=== PATIENT | female | born 1975 | race Caucasian/White ===

== ENCOUNTER 2024-06-01 13:39 | Outpatient (AMB) | payer OTHER, SELFPAY ==
--- NOTE | 2024-06-01 13:49 | MHC.PC.OV ---
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 Intake Note: patient here for new patient visit Sleep Technologist Required: No Is last menstrual period known: No Post menopausal: No Patient : No Allergies Bees - has epipen Allergy (Unknown, Uncoded 09/11/20 10:41) Rash Codeine Phosphate Allergy (Unknown, Uncoded 09/11/20 10:41) Rash Hives Codeine Sulfate Allergy (Unknown, Uncoded 04/09/20 00:00) Hives Wellbutrin Allergy (Unknown, Uncoded 04/09/20 00:00) stomach upset Tobacco use date assessed: 06/01/24 Dental Screening Dental Screen Date: 06/01/24 Did you have a dental visit in the last 12 months?: No Did you have a dental problem in the last 6 months where you did not have access to dental care?: No Was dental information given to patient?: No HPI HPI Comments History of Present Illness Details This is a 48 year old female with a pmhx of tobacco use disorder, alcohol use disorder and GERD presenting a physical exam. She is a new patient to me. She's had reflux for 8-10 years. Tomato makes it worse. She's taken Famotidine 40 mg daily for 5-6 years. Says it is not helping. She vomits sometimes from it. She is a smoker and drinks coffee. Smokes 1 ppd x 37 years. She tried Chantix, but it caused tremors. She has an irritant reaction to patches. She is allergic to Wellbutrin. Drinks 8-9 beers every 2 days. She used to see a therapist. She is open to behavioral health. She gets agitated and shaky if she does not drink. She has underlying depression symptoms x 6 months. She has some anxiety. She is referred for a colonoscopy. She is referred for a mammogram and RN LAB exam. Declines screenings for STIs. Not SA. ROS: Constitutional: No unexplained weight loss, fever, chills, fatigue or night sweats. Eyes: No vision changes, blurry vision, double vision, eye pain, eye redness, eye discharge. ENT: No hearing loss, sneezing, congestion, runny nose or sore throat. Respiratory: No shortness of breath, cough or sputum production. Cardiovascular: No chest pain, chest pressure or chest discomfort. No palpitations or pedal edema. Gastrointestinal: No anorexia, nausea or diarrhea. No abdominal pain or blood in stool. Genitourinary: No dysuria, hematuria, urinary frequency. Neurologic: No headache, dizziness, syncope, unilateral weakness, ataxia, numbness or tingling in the extremities. Musculoskeletal: No muscle pain, back pain, joint pain or swelling. Hematologic/Lymphatics: No bleeding or bruising. No painful lymph nodes. Skin: No rash or itching. Endocrine: No cold or heat intolerance. No polyuria or polydipsia. Psychiatric: No SI/HI. Physical exam: Constitutional: Alert, in no distress. Head: Normocephalic. Eyes: Pupils are equal, round and reactive to light. Extraocular muscles intact. Ear, Nose and Throat: Canals clear. TMs normal. Normal nasal mucosa. No nasal discharge. No oral lesions. Neck: Supple, Full range of motion. No lymphadenopathy. No palpable thyroid masses. Respiratory: Clear to auscultation. Cardiovascular: S1 S2 regular. No murmurs. N Gastrointestinal: Abdomen soft, non-tender, non-distended. Normal bowel sounds. No palpable masses. Neurologic: No focal neurological deficits. Symmetric patellar reflexes. Moves all extremities spontaneously. Sensation intact bilaterally. Skin: No rashes or lesions. Musculoskeletal: No gross deformities. Normal range of motion. Extremities: Warm and well perfused. Psychiatric: Normal mood and affect [facility] Medical History (Updated 06/01/24 @ 14:44 by YARI Mei) Tobacco use Screening for cardiovascular condition Depression Alcohol use disorder Routine physical examination Acid reflux COPD (chronic obstructive pulmonary disease) Surgical History (Updated 06/01/24 @ 13:55 by Brittany Flannery) H/O wrist surgery History of ankle surgery H/O knee surgery Family History (Updated 06/01/24 @ 14:01 by Brittany Flannery) Mother Asthma High blood pressure Father Asthma High cholesterol Alcohol abuse Substance abuse FH: mental illness Maternal Grandfather Asthma High blood pressure High cholesterol Diabetes Paternal Grandfather High blood pressure High cholesterol Diabetes Paternal Uncle FH: mental illness Social History Housing: Apartment Patient Tobacco Use Status: Current everyday Tobacco user Tobacco use type: Cigarette Cigarettes Per Day: 15 Years Smoked: 36 e-Cigarette/Vaping Use: Never Used service: No Current occupational status: unemployed Cognitive needs: No Hearing needs: No Vision needs: Yes (wear glasses) Questionnaire PHQ-9 Over the last 2 weeks, how often have you been bothered by any of the following problems? 1. Little interest or pleasure in doing things: more than half the days 2. Feeling down, depressed, or hopeless: more than half the days 3. Trouble falling or staying asleep, or sleeping too much: nearly every day 4. Feeling tired or having little energy: more than half the days 5. Poor appetite or overeating: not at all 6. Feeling bad about yourself - or that you are a failure or have let yourself or your family down: several days 7. Trouble concentrating on things, such as reading the newspaper or watching television: not at all 8. Moving or speaking so slowly that other people could have noticed. Or the opposite - being so fidgety or restless that you have been moving around a lot more than usual: not at all 9. Thoughts that you would be better off or of hurting yourself in some way: not at all Total score: 10 Depression Screening Interpretation: Positive Depression Screening Follow-up: Community Mental Health Worker F/U Depression Screening Done: Yes 05137 - PHQ-9 Billing: Yes Source: Developed by Drs. Yordan Ruiz, Malinda Ross, Osman Haywood and colleagues, with an educational adilia from [email or web address]. Thrive Questionnaire Date Thrive assessed: 06/01/24 I am a: Patient Within the past 12 months, did the food you bought not last and you didn't have the money to get more?: Sometimes True Within the past 12 months, did you worry whether your food would run out before you got money to buy more?: Never true Do you have trouble paying for medicines?: No Do you have trouble getting transportation to medical appointments?: Yes Do you have trouble paying your heating and electricity bill?: No Do you have trouble taking care of your child, family member or friend?: Yes Do you have trouble with day-to-day activities such as bathing, preparing meals, shopping, managing finances, etc.?: No Are you currently unemployed and looking for a job?: Yes Are you interested in more education?: No Please select the resources that you would like help with: None Currently or been in a relationship where the following occur: No concerns reported THRIVE Score: 2 VISHAL-7 AMB Questionnaire VISHAL-7 Date VISHAL - 7 assessed: 06/01/24 Feeling nervous, anxious, or on edge: 1 = Several days Not being able to stop or control worryin = Several days Worrying too much about different things: 1 = Several days Trouble relaxin = Several days Being so restless that it is hard to sit still: 0 = Not at all Becoming easily annoyed or irritable: 3 = Nearly every day Feeling afraid as if something awful might happen: 0 = Not at all Total VISHAL-7 score (0-4 normal; 5-9 mild; 10-14 moderate; 15-21 severe): 7 Source: Developed by Drs. Yordan Ruiz, Malinda Ross, Osman Haywood and colleagues, with an educational adilia from [email or web address]. VISHAL-7 Assessment Billing VISHAL-7 Assessment Tool: VISHAL-7 Assessment 45437 ACT Questionnaire In the past 4 weeks, how much of the time did your asthma keep you from getting as much done at work, school or at home?: Some of the time During the past 4 weeks, how often have you had shortness of breath?: 1-2 times a week During the past 4 weeks, how often did your asthma symptoms wake you up at night or earlier than usual in the morning?: Not at all During the past 4 weeks, how often have you had to use your rescue inhaler or nebulizer medication?: Once a week or less How would you rate your asthma control during the past 4 weeks?: Completely controlled Score: 21 Physical exam (Primary Care) Vital Signs: Last Vital Signs Temp 97.6 F 06/01/24 13:57 Pulse 82 06/01/24 13:57 Resp 15 06/01/24 13:57 BP 132/74 06/01/24 13:57 Pulse Ox 99 06/01/24 13:57 Oxygen Delivery Method Room Air 06/01/24 13:57 BMI result Body Mass Index 24.4 Tobacco/Smoking Status: Tobacco use Status Tobacco use date assessed 06/01/24 06/01/24 14:00 Patient Tobacco Use Status Current everyday Tobacco 06/01/24 14:00 Tobacco use type Cigarette 06/01/24 14:00 e-Cigarette/Vaping Use Never Used 06/01/24 14:00 PHQ-9: PHQ-9 Score PHQ-9: Total score 10 06/01/24 14:31 Depression Screening Interpretation: Positive Depression Screening Follow-up: Community Mental Health Worker F/U Thrive Assessment: Date of Thrive Assessment Date Thrive assessed 06/01/24 06/01/24 13:53 Currently or been in a relationship where the following occur: No concerns reported Assessment and Plan Assessment & Plan (1) Routine physical examination: Code(s): Z00.00 - Encounter for general adult medical examination without abnormal findings Plan: Patient is seen today for a routine physical. As part of this visit we reviewed the following issues, which are considered and essential part of preventative health in this age group: - Breast Cancer screening - Annual Superintendent Pressure exam - Screening for colon cancer - Blood pressure screening - Cholesterol screening - Osteoporosis prevention including calcium/vitamin D intake, weight bearing exercise & smoking cessation - Nutritional and exercise counseling - Counseling of injury prevention including fire prevention, smoke alarms and seat belt usage - Screening for depression - Prevention of and/or testing for infectious diseases - Education about skin cancer - Recommendations about immunizations - Recommendation of an eye exam - Screening for substance abuse (2) Depression: Code(s): F32.A - Depression, unspecified Qualifiers: Depression Type: major depressive disorder Major depression recurrence: single episode Active/Remission status: currently active Major depression episode severity: moderate Qualified Code(s): F32.1 - Major depressive disorder, single episode, moderate Plan: Compounded by alcohol use disorder. Refer to behavioral health. (3) Tobacco use: Code(s): Z72.0 - Tobacco use Plan: Patient not able to tolerate multiple methods for smoking cessation. She may plan to cut down gradually, but she is not prepared to do it yet. Referred to [facility] at [facility] for 37 pack-year history. (4) Alcohol use disorder: Code(s): F10.90 - Alcohol use, unspecified, uncomplicated Plan: We reviewed the risks of alcohol use disorder. Check labs. Referred to behavioral health. Patient aware she should not try to stop drinking on her own due to possibility of withdrawal which can result in . (5) Chronic GERD: Code(s): K21.9 - Gastro-esophageal reflux disease without esophagitis Plan: Discussed smoking and coffee intake and alcohol are contributing to this. See above. Switch famotidine to Nexium. Refer to Gastroenterology. Plan Follow up in 3 months. Orders: Orders Comprehensive Met. Panel Today F10.90 - Alcohol use, unspecified, uncomplicated, F32.A - Depression, unspecified, K21.9 - Gastro-esophageal reflux disease without esophagitis, Z13.6 - Encounter for screening for cardiovascular disorders Lipid Panel Today F10.90 - Alcohol use, unspecified, uncomplicated, F32.A - Depression, unspecified, K21.9 - Gastro-esophageal reflux disease without esophagitis, Z13.6 - Encounter for screening for cardiovascular disorders TSH reflex Free T4 Today E66.9 - Obesity, unspecified, F10.90 - Alcohol use, unspecified, uncomplicated, F32.A - Depression, unspecified, K21.9 - Gastro-esophageal reflux disease without esophagitis, Z13.6 - Encounter for screening for cardiovascular disorders MM screening mammo BI Today Z12.31 - Encounter for screening mammogram for malignant neoplasm of breast Complete Blood Count no Diff Today F10.90 - Alcohol use, unspecified, uncomplicated, F32.A - Depression, unspecified, K21.9 - Gastro-esophageal reflux disease without esophagitis, Z13.6 - Encounter for screening for cardiovascular disorders Vitamin B12 and Folate Today F10.90 - Alcohol use, unspecified, uncomplicated, F32.A - Depression, unspecified, K21.9 - Gastro-esophageal reflux disease without esophagitis, Z13.6 - Encounter for screening for cardiovascular disorders Referrals Psychology Referral F10.90 - Alcohol use, unspecified, uncomplicated, F32.A - Depression, unspecified [employer] Referral Z01.419 - Encounter for gynecological examination (general) (routine) without abnormal findings Thoracic/General Surgery Referral Z72.0 - Tobacco use Gastroenterology Referral K21.9 - Gastro-esophageal reflux disease without esophagitis, Z12.11 - Encounter for screening for malignant neoplasm of colon Medications: New epinephrine (EpiPen) 0.3 mg (0.3 mL) IM Q4H PRN 2 ea 0RF anaphylaxis esomeprazole magnesium (Nexium) 20 mg PO DAILY 90 days 90 caps 0RF Discontinued famotidine Discontinued Reason: Doctor's Order 40 mg PO DAILY 90 tabs 0RF Coding Level of Care Code Est Pt Prev Care 40-64y(21238) Diagnoses Routine physical examination Z00.00 Current moderate episode of major depressive disorder without prior episode F32.1 Depression Type: major depressive disorder Major depression recurrence: single episode Active/Remission status: currently active Major depression episode severity: moderate Tobacco use Z72.0 Alcohol use disorder F10.90 Chronic GERD K21.9 Additional Codes VISHAL-7 Assessment Billing - VISHAL-7 Assessment Tool: VISHAL-7 Assessment 35104 ([id number])
[2024-06-01 13:57] VITALS: BP 132/74; PULSE 82; RESP 15; TEMP 36.4; O2SAT 99; BMI 24.4
== END 2024-06-01 14:40 | disposition home or self-care (01) ==
PROVIDERS: PCP Physician Assistant Medical; Visit Provider Physician Assistant Medical
DX: Z00.00 Encounter for general adult medical examination without abnormal findings (principal); F32.1 Major depressive disorder, single episode, moderate; Z72.0 Tobacco use; F10.90 Alcohol use, unspecified, uncomplicated; K21.9 Gastro-esophageal reflux disease without esophagitis
CPT/HCPCS: 99396

== ENCOUNTER 2024-06-16 10:32 | Outpatient (REF) | payer OTHER, SELFPAY ==
--- NOTE | ~2024-06-16 | MM_ITS ---
EXAMINATION: MM SCREENING DIGITAL BREAST TOMOSYNTHESIS, BILATERAL CLINICAL INFORMATION: Screening. Asymptomatic. COMPARISON: Mammography: Baseline. TECHNIQUE: Digital breast mammography with tomosynthesis is performed in both the craniocaudal and mediolateral oblique views along with computer-aided detection (CAD). FINDINGS: The breasts are heterogeneously dense, which may obscure small masses (ACR BI-RADS breast composition Category c). There are no significant masses, abnormal calcifications, or other abnormalities. MM/MM tomosynthesis screening BI IMPRESSION: No mammographic evidence of malignancy. ASSESSMENT: BI-RADS BI-RADS 1 - Negative RECOMMENDATION: Routine annual mammography screening. 1 year F/U This examination should not preclude the clinical evaluation of a suspicious palpable abnormality. This patient's information was entered into a reminder system with a target due date for their next mammogram. Electronically signed by: Gricelda Donovan DO 06/29/2024 08:07 PM EDT
== END 2024-06-16 10:33 | disposition home or self-care (01) ==
LOC: HO.MAMMO 10:32
PROVIDERS: PCP Physician Assistant Medical; Visit Provider Physician Assistant Medical
DX: Z12.31 Encounter for screening mammogram for malignant neoplasm of breast (principal)
CPT/HCPCS: 77063; 77067

== ENCOUNTER → 2024-06-16 10:35 | Outpatient (BNV) | payer OTHER, SELFPAY | PROVIDERS: PCP Physician Assistant Medical; Visit Provider Internal Medicine | DX: Z12.31 Encounter for screening mammogram for malignant neoplasm of breast (principal) | CPT/HCPCS: 77063; 77067 ==

== ENCOUNTER 2024-10-16 08:52 | Outpatient (AMB) | payer OTHER, SELFPAY ==
--- NOTE | 2024-10-16 09:05 | A.OFFPC_ITS ---
Vital Signs 10/16/24 09:07 Height 5 ft 4.5 in Weight 143 lb 2 oz BMI 24.2 BP 95/62 Blood Pressure Location Rt brachial Position Sitting Pulse 94 Pulse Source Pulse Oximeter Pulse Oximetry (%) 96 Oxygen Delivery Method Room Air Intake Visit Reasons: med f/u Intake Note: Medication follow up. Needs refill on epipen. Inhaler is not working sufficiently. Wire Lather Required: No Allergies Bees - has epipen Allergy (Unknown, Uncoded 10/16/24 09:05) Rash Codeine Phosphate Allergy (Unknown, Uncoded 10/16/24 09:05) Rash Hives Codeine Sulfate Allergy (Unknown, Uncoded 10/16/24 09:05) Hives Wellbutrin Allergy (Unknown, Uncoded 10/16/24 09:05) stomach upset Tobacco use date assessed: 06/01/24 Dental Screening Dental Screen Date: 06/01/24 HPI HPI Comments History of Present Illness Details This is a 48 year old female with a pmhx of tobacco use disorder, alcohol use disorder and GERD presenting for follow up. Accompanied by her aunt. As you recall we discussed reflux at her last visit: She's had reflux for 8-10 years. Tomato makes it worse. She's taken Famotidine 40 mg daily for 5-6 years. Says it is not helping. She vomits sometimes from it. She is a smoker and drinks coffee. Smokes 1 ppd x 37 years. Treated with Nexium. She is due for screening colonoscopy. I referred her to [facility] per her request. She said she was contacted, but she did not want to schedule a consult and just wanted to get the endoscopy and colonoscopy scheduled. I explained to her that since she has symptoms she needs to be seen by a provider for evaluation. She would like us to recent the referral to [facility] gastro. She tried Chantix, but it caused tremors. She has an irritant reaction to patches. She is allergic to Wellbutrin. Shares refer to [facility] for LDCT, but they told her she was too young. She is turning 49 in 2 months. She asks for a new referral. She is drinking 5 or 6 beers per day now down from 8 or 9 previously. She used to see a therapist and a psychiatrist at [facility] in [place]. The last psychiatrist she saw was Dr. Jack. They are closed now. She gets agitated and shaky if she does not drink. She has underlying depression and anxiety. Denies SI/HI. I referred her to Psychology and Psychiatry. Patient says clonazepam was prescribed for sleep. Patient says right now she does not want to speak with a therapist, but she does want to psychiatrist. In the EMR it is documented they left her 3 messages for Psychiatry, but she did not call back. Mammogram completed 06/16/2024. Routine mammo in 1 year recommended. She requests referral to Podiatry. In 2014 she had left foot trauma and surgery due to an accident. She has screws in her left foot. She complains of bilateral here pain that gets worse throughout the day after walking and moving around. No swelling, numbness or tingling. No new trauma. Patient says she also injured the right foot in the accident. She did not have labs done yet that I ordered. ROS: Constitutional: No unexplained weight loss, fever, chills or night sweats. Respiratory: No shortness of breath, cough or sputum production. No hemoptysis. Cardiovascular: No chest pain Neurologic: No headache, dizziness, syncope, unilateral weakness, ataxia, numbness or tingling in the extremities. Musculoskeletal: see HPI Hematologic/Lymphatics: No bleeding or bruising. Skin: No rash Endocrine: No cold or heat intolerance. No polyuria or polydipsia. Psychiatric: No SI/HI. Physical exam: Constitutional: Alert, in no distress. Neck: Supple, Full range of motion. No lymphadenopathy. No palpable thyroid masses. Respiratory: Clear to auscultation. Cardiovascular: S1 S2 regular. No murmurs. Right foot: Warm and well perfused. No clubbing, cyanosis or edema. DP pulse 3+. Sensation intact. Plantar surface of the right heel tender but less so than the left. Left foot: Warm and well perfused. No clubbing, cyanosis or edema. DP pulse 3+. Sensation intact. Postsurgical scars present. Plantar surface of the left heel tender. Psychiatric: Cooperative. [facility] Medical History (Updated 10/17/24 @ 11:32 by YARI Mei) Screen for colon cancer Heel pain, bilateral Tobacco use Screening for cardiovascular condition Depression Alcohol use disorder Routine physical examination Acid reflux COPD (chronic obstructive pulmonary disease) Surgical History (Updated 06/01/24 @ 13:55 by Brittany Flannery MA) H/O wrist surgery History of ankle surgery H/O knee surgery Family History (Updated 06/01/24 @ 14:01 by Brittany Flannery MA) Mother Asthma High blood pressure Father Asthma High cholesterol Alcohol abuse Substance abuse FH: mental illness Maternal Grandfather Asthma High blood pressure High cholesterol Diabetes Paternal Grandfather High blood pressure High cholesterol Diabetes Paternal Uncle FH: mental illness Social History Housing: Apartment Patient Tobacco Use Status: Current everyday Tobacco user Tobacco use type: Cigarette Cigarettes Per Day: 15 Years Smoked: 36 e-Cigarette/Vaping Use: Never Used service: No Current occupational status: unemployed Cognitive needs: No Hearing needs: No Vision needs: Yes (wear glasses) Questionnaire PHQ-9 Over the last 2 weeks, how often have you been bothered by any of the following problems? 1. Little interest or pleasure in doing things: more than half the days 2. Feeling down, depressed, or hopeless: nearly every day 3. Trouble falling or staying asleep, or sleeping too much: nearly every day 4. Feeling tired or having little energy: nearly every day 5. Poor appetite or overeating: not at all 6. Feeling bad about yourself - or that you are a failure or have let yourself or your family down: more than half the days 7. Trouble concentrating on things, such as reading the newspaper or watching television: more than half the days 8. Moving or speaking so slowly that other people could have noticed. Or the opposite - being so fidgety or restless that you have been moving around a lot more than usual: not at all 9. Thoughts that you would be better off or of hurting yourself in some way: not at all Total score: 15 Depression Screening Interpretation: Positive Depression Screening Follow-up: Existing condition and Follow-up Visit Requested Depression Screening Done: Yes Source: Developed by Drs. Yordan Ruiz, Malinda Ross, Osman Haywood and colleagues, with an educational adilia from [employer]. Thrive Questionnaire Date Thrive assessed: 06/01/24 I am a: Patient What is your living situation today?: I have a steady place to live Within the past 12 months, did the food you bought not last and you didn't have the money to get more?: Never true Within the past 12 months, did you worry whether your food would run out before you got money to buy more?: Never true Do you have trouble paying for medicines?: No Do you have trouble getting transportation to medical appointments?: Yes Do you have trouble paying your heating and electricity bill?: Yes Do you have trouble taking care of your child, family member or friend?: I choose not to answer this question Do you have trouble with day-to-day activities such as bathing, preparing meals, shopping, managing finances, etc.?: No Are you currently unemployed and looking for a job?: No Are you interested in more education?: No Please select the resources that you would like help with: Transportation Currently or been in a relationship where the following occur: I choose not to answer THRIVE Score: 2 AUDIT C Alcohol Use Questionnaire (AUDIT-C) 1. How often do you have a drink containing alcohol?: 4 or more times a week 2. How many drinks containing alcohol do you have on a typical day when you are drinking?: 5 or 6 3. How often do you have six or more drinks on one occasion?: Weekly Total Score: 9 VISHAL-7 AMB Questionnaire VISHAL-7 Date VISHAL - 7 assessed: 06/01/24 Feeling nervous, anxious, or on edge: 1 = Several days Not being able to stop or control worryin = Several days Worrying too much about different things: 1 = Several days Trouble relaxin = Several days Being so restless that it is hard to sit still: 1 = Several days Becoming easily annoyed or irritable: 1 = Several days Feeling afraid as if something awful might happen: 0 = Not at all Total VISHAL-7 score (0-4 normal; 5-9 mild; 10-14 moderate; 15-21 severe): 6 Source: Developed by Drs. Yordan Ruiz, Malinda Ross, Osman Haywood and colleagues, with an educational adilia from [employer]. Physical exam (Primary Care) Vital Signs: Last Vital Signs Pulse 94 10/16/24 09:07 BP 95/62 10/16/24 09:07 Pulse Ox 96 10/16/24 09:07 Oxygen Delivery Method Room Air 10/16/24 09:07 BMI result Body Mass Index 24.2 Tobacco/Smoking Status: Tobacco use Status Tobacco use date assessed 06/01/24 10/16/24 09:10 Patient Tobacco Use Status Current everyday Tobacco 10/16/24 09:10 Tobacco use type Cigarette 10/16/24 09:10 e-Cigarette/Vaping Use Never Used 10/16/24 09:10 PHQ-9: PHQ-9 Score PHQ-9: Total score 15 10/16/24 09:10 Depression Screening Interpretation: Positive Depression Screening Follow-up: Existing condition and Follow-up Visit Requested Thrive Assessment: Date of Thrive Assessment Date Thrive assessed 06/01/24 10/16/24 09:10 Currently or been in a relationship where the following occur: I choose not to answer Coding Level of Care Code Est Pt Level 4 (92205) Complex EM visit Add On G2211 Diagnoses Chronic GERD K21.9 Tobacco use Z72.0 Alcohol use disorder F10.90 Current moderate episode of major depressive disorder without prior episode F32.1 Depression Type: major depressive disorder Major depression recurrence: single episode Active/Remission status: currently active Major depression episode severity: moderate Heel pain, bilateral M79.671; M79.672 Assessment & Plan Assessment & Plan (1) Chronic GERD: Code(s): K21.9 - Gastro-esophageal reflux disease without esophagitis Category: Medical Plan: We again discussed alcohol consumption and smoking and how this relates to GERD. Recommended avoidance of spicy and acidic foods. Continue Nexium. Referred anew to [facility] for GERD and screening colonoscopy. (2) Tobacco use: Code(s): Z72.0 - Tobacco use Category: Social Hx Plan: Patient is not interested in cessation at this time. She is interested in LDCT. Referred anew since she will be 49 in 2 months and qualify. (3) Alcohol use disorder: Code(s): F10.90 - Alcohol use, unspecified, uncomplicated Category: Medical Plan: We reviewed the risks of alcohol abuse in detail. She is not ready to stop drinking and declines referral to addiction Medicine. We discussed Psychology, and she is willing to try some counseling again. New referral placed. She is also referred to Psychiatry. She will have her lab work done. (4) Depression: Code(s): F32.A - Depression, unspecified Category: Medical Qualifiers: Depression Type: major depressive disorder Major depression recurrence: single episode Active/Remission status: currently active Major depression episode severity: moderate Qualified Code(s): F32.1 - Major depressive disorder, single episode, moderate Plan: See above. (5) Heel pain, bilateral: Code(s): M79.671 - Pain in right foot; M79.672 - Pain in left foot Category: Medical Plan: Ordered x-rays and refer to podiatry. Plan Follow up in 3 months. Orders: Orders XR calcaneus LT min 2V 10/16/24 M79.671 - Pain in right foot, M79.672 - Pain in left foot XR calcaneus RT min 2V 10/16/24 M79.671 - Pain in right foot, M79.672 - Pain in left foot Referrals Thoracic/General Surgery Referral Z72.0 - Tobacco use Podiatry Referral F10.90 - Alcohol use, unspecified, uncomplicated, F32.1 - Major depressive disorder, single episode, moderate, M79.671 - Pain in right foot, M79.672 - Pain in left foot Gastroenterology Referral K21.9 - Gastro-esophageal reflux disease without esophagitis, Z12.11 - Encounter for screening for malignant neoplasm of colon Psychology Referral F10.90 - Alcohol use, unspecified, uncomplicated, F32.1 - Major depressive disorder, single episode, moderate Psychiatry Outpatient Consultation Service F10.90 - Alcohol use, unspecified, uncomplicated, F32.1 - Major depressive disorder, single episode, moderate
[2024-10-16 09:07] VITALS: BP 95/62; PULSE 94; O2SAT 96; BMI 24.2
== END 2024-10-16 09:36 | disposition home or self-care (01) ==
PROVIDERS: PCP Physician Assistant Medical; Visit Provider Physician Assistant Medical
DX: K21.9 Gastro-esophageal reflux disease without esophagitis (principal); Z72.0 Tobacco use; F10.90 Alcohol use, unspecified, uncomplicated; F32.1 Major depressive disorder, single episode, moderate; M79.671 Pain in right foot; M79.672 Pain in left foot

== ENCOUNTER 2024-10-16 09:49 | Outpatient (REF) | payer OTHER, SELFPAY ==
[2024-10-16 11:20] LABS: Hematocrit 45.9 % (37.0-47.0); Hemoglobin 15.5 g/dl (12.0-16.0); Mean Corpuscular HGB Conc 33.8 g/dl (31.0-35.0); Mean Corpuscular Hemoglobin 31.6 pg (27.0-33.0); Mean Corpuscular Volume 93.7 fL (80.0-98.0); Mean Platelet Volume 9.7 fL (9.4-12.3); Platelet Count 343 X10*3/uL (160-400); Red Cell Distribution Width 13.2 % (11.0-16.0); White Blood Count 7.1 X10*3/uL (4.8-10.8)
[2024-10-16 12:20] LABS: Alanine Aminotransferase 127 U/L (0-31); Albumin Level 4.8 g/dL (3.5-5.0); Alkaline Phosphatase 54 U/L (39-117); Anion Gap 12 (12-20); Aspartate Amino Transferase 102 U/L (5-31); Bilirubin Total 0.5 mg/dL (0.0-1.0); Blood Urea Nitrogen 8 mg/dL (9-16); Calcium 9.8 mg/dL (8.4-10.2); Carbon Dioxide 28 mmol/L (22-29); Chloride 101 mmol/L (96-108); Cholesterol 199 mg/dL (<200); Estimated Glomerular Filt Rate > 60; Glucose Random 72 mg/dL (60-115); HDL Cholesterol 103 mg/dL (>40); LDL Cholesterol Calculated 83 mg/dL (<100); Potassium 4.3 mmol/L (3.3-5.1); Sodium 137 mmol/L (135-145); TSH reflex Free T4 1.39 uIU/mL (0.32-4.0); Total Protein 7.8 g/dL (6.5-8.0); Triglycerides 68 mg/dL (<150)
[2024-10-16 12:29] LABS: Folate 10.3 ng/mL (> or = 4.0); Vitamin B12 413 pg/mL (200-900)
== END 2024-10-16 09:50 | disposition home or self-care (01) ==
LOC: HO.WFDLDS 09:49
PROVIDERS: Visit Provider Physician Assistant Medical
DX: K21.9 Gastro-esophageal reflux disease without esophagitis (principal); F10.90 Alcohol use, unspecified, uncomplicated; F32.1 Major depressive disorder, single episode, moderate; M79.671 Pain in right foot; M79.672 Pain in left foot; Z72.0 Tobacco use; Z13.6 Encounter for screening for cardiovascular disorders; E66.9 Obesity, unspecified
CPT/HCPCS: 36415; 80053; 80061; 82607; 82746; 84443; 85027; 99212

== ENCOUNTER 2024-11-08 10:16 | Outpatient (REF) | payer OTHER, SELFPAY ==
--- NOTE | ~2024-11-08 | XR_ITS ---
EXAMINATION: XR CALCANEUS, RIGHT CLINICAL INFORMATION: M79.671 - Pain in right foot COMPARISON: None available. TECHNIQUE: Lateral and axial views of the right calcaneus were obtained. FINDINGS: There is a small, 5 mm spur on the plantar calcaneus.. No acute cortical disruption. No lytic or blastic lesions. XR/XR calcaneus RT min 2V IMPRESSION: Small, 5 mm, plantar calcaneal spur. Electronically signed by: Dileep Mccord MD 11/08/2024 11:58 AM [facility]
--- NOTE | ~2024-11-08 | XR_ITS ---
EXAMINATION: XR CALCANEUS, LEFT CLINICAL INFORMATION: M79.671 - Pain in right foot COMPARISON: Left ankle x-ray dated June 02, 2016. TECHNIQUE: Lateral and axial views of the left calcaneus were obtained. FINDINGS: The calcaneus is intact. No lytic or blastic lesions. There is a metallic screw overlapping the distal diaphysis of the fibula. The previously identified metallic plates and multiple screws in the ankle are not identified. XR/XR calcaneus LT min 2V IMPRESSION: Normal left calcaneus. Electronically signed by: Dileep Mccord MD 11/08/2024 11:57 AM [facility]
--- NOTE | ~2024-11-08 | US_ITS ---
EXAMINATION: US ABDOMEN LIMITED WITH LIVER ELASTOGRAPHY CLINICAL INFORMATION: Elevated LFTs. COMPARISON: None available. TECHNIQUE: Real-time imaging of the abdominal viscera. Noninvasive ultrasound liver fibrosis assessment is performed using [place] Elast[employer] point quantification shear wave elastography (2D-SWE) with a C5-2 MHz transducer. Multiple elastography samples are obtained. FINDINGS: PANCREAS: The visualized pancreatic head and body are normal in appearance. The remainder of the pancreas is obscured from visualization by the overlying bowel gas. LIVER: The liver demonstrates normal size and contour. There is diffusely increased parenchymal echogenicity. No focal lesion or intrahepatic biliary duct dilatation. The right lobe measures 15.2 cm in length. The left lobe measures 13.5 cm in length. Portal flow is towards the liver (hepatopetal). Shear wave liver elastography median stiffness is 1.42 m/s (reference: normal median stiffness is 1.3 m/s or less). IQR/median stiffness to assess sampling precision is 0.07 (reference: good quality data set is IQR/median stiffness of 0.15 or less). GALLBLADDER: The gallbladder is physiologically distended without evidence of stones, sludge, polyps, wall thickening or pericholecystic fluid. COMMON BILE DUCT: Normal in caliber measuring 0.6 cm in diameter. RIGHT KIDNEY: No hydronephrosis. No renal calculi or focal parenchymal lesions. The kidney measures 10.1 cm in maximum dimension. FREE FLUID: None. US/US abdomen blandon w elastography IMPRESSION: 1. Mildly diffusely increased hepatic echogenicity most likely on the basis of steatosis. No focal lesion. 2. Liver elastography: In the absence of other known clinical signs, measurements rule out compensated advanced chronic liver disease. If there are known clinical signs, further testing may be needed for confirmation. 3. Remainder of the examination is normal. REFERENCE: Society of Radiologists in Ultrasound Liver Stiffness Thresholds (2020): LIVER STIFFNESS THRESHOLDS: *Liver Stiffness equal or less than 1.3 m/s: High probability of being normal. *Liver Stiffness less than 1.7 m/s: In the absence of other known clinical signs, rules out compensated advanced chronic liver disease. *Liver Stiffness 1.7-2.1 m/s: Suggestive of compensated advanced chronic liver disease but need further test for confirmation. *Liver Stiffness over 2.1 m/s: Rules in compensated advanced chronic liver disease. *Liver Stiffness over 2.4 m/s: Suggestive of clinically significant portal hypertension. QUALITY OF DATA SET: *IQR/Median value equal or less than 0.15 implies a quality data set. *IQR/Median value over 0.15 implies a poor quality data set. SIGNIFICANT CHANGE FROM PRIOR EXAM: Significant change if liver stiffness measurement is 10% or greater from prior exam. OTHER CONSIDERATIONS: The stage of liver fibrosis may be overestimated in the setting of acute hepatitis, liver inflammation, elevated liver function tests, hepatic vascular congestion, obstructive cholestasis, non-fasting state, and infiltrative diseases such as amyloidosis and lymphoma. In some patients with NAFLD, the liver stiffness thresholds for compensated advanced chronic liver disease may be lower. In causes other than viral hepatitis and NAFLD, liver stiffness thresholds are not well established. Electronically signed by: Stef Ribeiro MD 11/08/2024 12:34 PM [facility]
== END 2024-11-08 10:17 | disposition home or self-care (01) ==
LOC: HO.US 10:16
PROVIDERS: PCP Physician Assistant Medical; Visit Provider Physician Assistant Medical
DX: R74.8 Abnormal levels of other serum enzymes (principal); F10.90 Alcohol use, unspecified, uncomplicated; M79.671 Pain in right foot; M79.672 Pain in left foot
CPT/HCPCS: 73650; 76705; 76981

== ENCOUNTER → 2024-11-08 10:21 | Outpatient (BNV) | payer OTHER, SELFPAY | PROVIDERS: PCP Physician Assistant Medical; Visit Provider Radiology Diagnostic Radiology | DX: R74.01 Elevation of levels of liver transaminase levels (principal); K76.0 Fatty (change of) liver, not elsewhere classified; M77.31 Calcaneal spur, right foot; M79.672 Pain in left foot | CPT/HCPCS: 73650; 76705 ==

== ENCOUNTER 2025-01-08 08:53 | Outpatient (AMB) | payer OTHER, SELFPAY ==
--- NOTE | 2025-01-08 09:00 | A.OFFPC_ITS ---
Vital Signs 01/08/25 09:05 Height 5 ft 4.5 in Weight 140 lb 4 oz BMI 23.7 BP 131/75 Blood Pressure Location Rt brachial Position Sitting Respiration 16 Pulse 87 Pulse Source Pulse Oximeter Temp 97.5 F Temp Source Oral Pulse Oximetry (%) 98 Oxygen Delivery Method Room Air Intake Visit Reasons: follow up Intake Note: patient her for follow up Bellows Tester Required: No Is last menstrual period known: Yes Last menstrual period: 12/20/24 Post menopausal: No Patient : No Allergies aspirin Allergy (Severe, Verified 01/08/25 09:04) Stomach Upset Bees - has epipen Allergy (Unknown, Uncoded 10/16/24 09:05) Rash Codeine Phosphate Allergy (Unknown, Uncoded 10/16/24 09:05) Rash Hives Codeine Sulfate Allergy (Unknown, Uncoded 10/16/24 09:05) Hives Wellbutrin Allergy (Unknown, Uncoded 10/16/24 09:05) stomach upset Tobacco use date assessed: 01/08/25 Dental Screening Dental Screen Date: 01/08/25 Did you have a dental visit in the last 12 months?: No Did you have a dental problem in the last 6 months where you did not have access to dental care?: No Was dental information given to patient?: Patient has dentist HPI HPI Comments History of Present Illness Details This is a 49 year old female with a pmhx of tobacco use disorder, alcohol use disorder and GERD presenting for follow up. Accompanied by her aunt. GERD-taking Nexium 20 mg daily. She is a smoker and drinks coffee. Smokes 1 ppd x 37 years. Patient reports she had her EGD and colonoscopy at [facility] in November. Patient reports they were normal. Customer Success Specialist told her she can increase Nexium to 40 mg daily if needed. Patient had a liver ultrasound on 11/08/2024 which demonstrated hepatic steatosis and elastography measurements ruled out compensated advanced chronic liver disease. Her liver function tests were elevated, and she is going to repeat them today. She is still drinking. Tobacco use- She tried Chantix, but it caused tremors. She has an irritant reaction to patches. She is allergic to Wellbutrin. Patient is using Ventolin for COPD, but she is having to use it 4 times per day. It is not always effective. Endorses chronic cough and wheezing. She has an LDCT scheduled tomorrow. She has an appointment to get the pneumonia vaccine. Alcoholism- She is drinking 5 or 6 beers per day now down from 8 or 9 previously. Patient is seeing a therapist who she likes now. She was referred to Psychiatry, and they out reached with the patient 3 times, but she did not respond. She would still like to see the psychiatrist. She wants to go back on clonazepam for sleep dysfunction. She has tried melatonin and [id number] sleep aids. She has underlying depression and anxiety. Denies SI/HI. Patient gets frequent hot flashes and brain fog from menopause and more irritability. This also interferes with her sleep. Mammogram completed 06/16/2024. Routine mammo in 1 year recommended. She has an appointment 03/01/25 with podiatry for her chronic feet pain. ROS: Constitutional: No unexplained weight loss, fever, chills or night sweats. Respiratory: No shortness of breath, , hemoptysis or sputum production. Cardiovascular: No chest pain Neurologic: No headache, dizziness, syncope, unilateral weakness, ataxia, numbness or tingling in the extremities. Hematologic/Lymphatics: No bleeding or bruising. Gastrointestinal: No vomiting, diarrhea, blood in stools or abdominal pain. Skin: No rash Endocrine: No cold or heat intolerance. No polyuria or polydipsia. Psychiatric: No SI/HI. Physical exam: Constitutional: Alert, in no distress. Neck: Supple, Full range of motion. No lymphadenopathy. No palpable thyroid masses. Respiratory: Clear to auscultation. Cardiovascular: S1 S2 regular. No murmurs. Psychiatric: Cooperative. [facility] Medical History (Updated 01/08/25 @ 09:29 by YARI Mei) Hepatic steatosis Elevated liver enzymes Screen for colon cancer Heel pain, bilateral Tobacco use Screening for cardiovascular condition Depression Alcohol use disorder Routine physical examination Acid reflux COPD (chronic obstructive pulmonary disease) Surgical History (Updated 06/01/24 @ 13:55 by Brittany Flannery MA) H/O wrist surgery History of ankle surgery H/O knee surgery Family History (Updated 06/01/24 @ 14:01 by Brittany Flannery MA) Mother Asthma High blood pressure Father Asthma High cholesterol Alcohol abuse Substance abuse FH: mental illness Maternal Grandfather Asthma High blood pressure High cholesterol Diabetes Paternal Grandfather High blood pressure High cholesterol Diabetes Paternal Uncle FH: mental illness Social History Housing: Apartment Patient Tobacco Use Status: Current everyday Tobacco user Tobacco use type: Cigarette Cigarettes Per Day: 15 Years Smoked: 36 e-Cigarette/Vaping Use: Never Used service: No Current occupational status: unemployed Cognitive needs: No Hearing needs: No Vision needs: Yes (wear glasses) Female Reproductive History Menstrual Date of last menstrual period: 12/20/24 Questionnaire Thrive Questionnaire Date Thrive assessed: 10/16/24 I am a: Patient What is your living situation today?: I have a steady place to live Within the past 12 months, did the food you bought not last and you didn't have the money to get more?: Never true Within the past 12 months, did you worry whether your food would run out before you got money to buy more?: Never true Do you have trouble paying for medicines?: No Do you have trouble getting transportation to medical appointments?: Yes Do you have trouble paying your heating and electricity bill?: Yes Do you have trouble taking care of your child, family member or friend?: I choose not to answer this question Do you have trouble with day-to-day activities such as bathing, preparing meals, shopping, managing finances, etc.?: No Are you currently unemployed and looking for a job?: No Are you interested in more education?: No Please select the resources that you would like help with: Transportation Currently or been in a relationship where the following occur: I choose not to answer THRIVE Score: 2 VISHAL-7 AMB Questionnaire VISHAL-7 Date VISHAL - 7 assessed: 06/01/24 Source: Developed by Drs. Yordan Ruiz, Malinda Ross, Osman Haywood and colleagues, with an educational adilia from [employer]. Physical exam (Primary Care) Vital Signs: Last Vital Signs Temp 97.5 F 01/08/25 09:05 Pulse 87 01/08/25 09:05 Resp 16 01/08/25 09:05 BP 131/75 01/08/25 09:05 Pulse Ox 98 01/08/25 09:05 Oxygen Delivery Method Room Air 01/08/25 09:05 BMI result Body Mass Index 23.7 Tobacco/Smoking Status: Tobacco use Status Tobacco use date assessed 01/08/25 01/08/25 09:08 Patient Tobacco Use Status Current everyday Tobacco 04/07/25 09:02 Tobacco use type Cigarette 01/08/25 09:02 e-Cigarette/Vaping Use Never Used 01/08/25 09:02 Thrive Assessment: Date of Thrive Assessment Date Thrive assessed 10/16/24 01/08/25 09:02 Currently or been in a relationship where the following occur: I choose not to answer Coding Level of Care Code Est Pt Level 4 (34024) Complex EM visit Add On G2211 Diagnoses Chronic GERD K21.9 Tobacco use Z72.0 Alcohol use disorder F10.90 Current moderate episode of major depressive disorder without prior episode F32.1 Depression Type: major depressive disorder Major depression recurrence: single episode Active/Remission status: currently active Major depression episode severity: moderate Heel pain, bilateral M79.671; M79.672 Assessment & Plan Assessment & Plan (1) Chronic GERD: Code(s): K21.9 - Gastro-esophageal reflux disease without esophagitis Category: Medical Plan: We again discussed alcohol consumption and smoking and how this relates to GERD. Recommended avoidance of spicy and acidic foods. Continue Nexium. Patient saw Gastro[facility]ology at [facility]. (2) Tobacco use: Code(s): Z72.0 - Tobacco use Category: Social Hx Plan: Patient is not interested in cessation at this time. LDCT is scheduled tomorrow. Referred to pulmonology for COPD and smoking. Trial of Spiriva 2 puffs daily. Continue Ventolin 2 puffs every 4 hours as needed for coughing, wheezing and shortness of breath. (3) Alcohol use disorder: Code(s): F10.90 - Alcohol use, unspecified, uncomplicated Category: Medical Plan: We reviewed the risks of alcohol abuse in detail. She is not ready to stop drinking and declines referral to addiction Medicine. She is seeing a therapist now. Recheck LFTs. (4) Depression: Code(s): F32.A - Depression, unspecified Category: Medical Qualifiers: Depression Type: major depressive disorder Major depression recurrence: single episode Active/Remission status: currently active Major depression episode severity: moderate Qualified Code(s): F32.1 - Major depressive disorder, single episode, moderate Plan: We discussed depression, anxiety, menopausal symptoms. Patient agreeable to trial of citalopram 10 mg daily. Discussed black box warning, administration and side effects. She will contact the office if she has any difficulty with this. (5) Heel pain, bilateral: Code(s): M79.671 - Pain in right foot; M79.672 - Pain in left foot Category: Medical Plan: She has a podiatry appointment in February. Plan Follow up in 4-6 weeks. Orders: Referrals Pulmonology Referral J44.9 - Chronic obstructive pulmonary disease, unspecified Medications: New citalopram 10 mg PO DAILY 60 tabs 0RF tiotropium bromide 2.5 mcg/actuation (Spiriva Respimat) 2 puffs inhalation BEDTIME 4 grams 5RF Refilled epinephrine (EpiPen) 0.3 mg (0.3 mL) IM Q4H PRN 2 ea 0RF anaphylaxis
[2025-01-08 09:05] VITALS: BP 131/75; PULSE 87; RESP 16; TEMP 36.4; O2SAT 98; BMI 23.7
--- OUTSIDE RECORDS SUMMARY | 2025-01-08 09:42 | XMS_ITS | Clinical Summary ---
Author Organization [address] [place] [address] Address [address] [place] [address] Phone Care Team Providers Care Reporting Lead Name Role Phone Shelli Maciel Primary Care Provider [phone] Allergies Active Allergy Reactions Criticality Noted Date Comments Bee Venom Protein (Honey Bee) 2024 Codeine 11/10/2024 Swelling/Edema Penicillins 11/10/2024 Itching/ Pruritus Medications varenicline tartrate (CHANTIX IVETT) 0.5 mg (11)- 1 mg (42) tablet Take by mouth. Active Social History Tobacco Use Types Packs/Day Years Used Date Smoking Tobacco: Never Assessed Comments Unknown Sex and Gender Information Value Date Recorded Sex Assigned at Not on file Legal Sex Female 3:44 PM EST Gender Identity Not on file Sexual Orientation Not on file Plan of Treatment Upcoming Encounters Date Type Department Care Team ([facility] Contact Info) Description 03/01/2025 10:45 AM EDT Consult Orthopedic Surgery - [place] [address] [phone] Freddie Forman DPM [address] [phone] Health Maintenance Due Date Last Done Comments Breast Cancer Screening 1974 DTaP,Tdap,and Td Vaccines (1 - Tdap) 1993 Hepatitis B Vaccines (1 of 3 - 19+ 3-dose series) 1993 Cervical Cancer Screening: P ap Smear 12/23/1995 COVID-19 Vaccine (2023-2 5 season) 2024 Colorectal Cancer Screening: Colonoscopy 11/09/2024 Depression Screening 11/09/2024 HIV Screening 11/09/2024 Hepatitis C Screening 11/09/2024 Social Influencers of Health Screening 11/09/2024 Pneumococcal Vaccine: 50+ Ye ars (1 of 1 - PCV) 2024 Zoster Vaccines (1 of 2) 2024 Influenza Vaccine (Season Ended) 2025 HIB Vaccines Aged Out No longer eligi ble based on patient's age to complete this topic HPV Vaccines Aged Out No longer eligi ble based on patient's age to complete this topic Hepatitis A Vaccines Aged Out No long er eligible based on patient's age to complete this topic IPV Vaccines Aged Out No longer eligi ble based on patient's age to complete this topic MMR Vaccines Aged Out No longer eligi ble based on patient's age to complete this topic Meningococcal ACWY Vaccine Aged Out N o longer eligible based on patient's age to complete this topic Meningococcal B Vacine Aged Out No lo nger eligible based on patient's age to complete this topic Pneumococcal Vaccine: Pediat rics (0 to 5 Years) and At-Risk Patients (6 to 64 Years) Aged Out No longer eligible b ased on patient's age to complete this topic RSV Immunization Patients Un malathi 20 months Aged Out No longer eligible b ased on patient's age to complete this topic Varicella Vaccines Aged Out No longer eligible based on patient's age to complete this topic [place] [address] [place] [address] [employer]ALTH PLAN Care Teams Reporting Lead Relationship Specialty Start Date End Date Shelli Maciel PA [address] [place] [phone] PCP - General Physician Ophthalmic Aide 11/08/24
== END 2025-01-08 09:39 | disposition home or self-care (01) ==
LOC: HO.HMCFM 08:54
PROVIDERS: PCP Physician Assistant Medical; Visit Provider Physician Assistant Medical
DX: K21.9 Gastro-esophageal reflux disease without esophagitis (principal); Z72.0 Tobacco use; F10.90 Alcohol use, unspecified, uncomplicated; F32.1 Major depressive disorder, single episode, moderate; M79.671 Pain in right foot; M79.672 Pain in left foot

== ENCOUNTER → 2025-01-08 08:53 | Outpatient (BNVA) | payer OTHER, SELFPAY | PROVIDERS: PCP Physician Assistant Medical; Visit Provider Physician Assistant Medical | DX: K21.9 Gastro-esophageal reflux disease without esophagitis (principal); F32.1 Major depressive disorder, single episode, moderate; F10.90 Alcohol use, unspecified, uncomplicated; J44.9 Chronic obstructive pulmonary disease, unspecified; M79.671 Pain in right foot; M79.672 Pain in left foot; Z72.0 Tobacco use | CPT/HCPCS: 99212 ==

== ENCOUNTER 2025-01-08 09:44 | Outpatient (REF) | payer OTHER, SELFPAY ==
--- OUTSIDE RECORDS SUMMARY | 2025-01-08 11:12 | XMS_ITS | Clinical Summary ---
Author Organization [address] [place] [address] Address [address] [place] [address] Phone Care Team Providers Care Enterprise Architect Manager Name Role Phone Shelli Maciel Primary Care Provider Allergies Active Allergy Reactions Criticality Noted Date [...] Upcoming Encounters Date Type Department Care Team ([facility] Contact Info) Description 03/01/2025 10:45 AM EDT Consult Orthopedic Surgery - [place] [address] [phone] Freddie Forman DPM [address] [address] Health Maintenance Due Date Last Done Comments [...] patient's age to complete this topic [place] [address] [place] [address] [employer]ALTH PLAN Care Teams Enterprise Architect Manager Relationship Specialty Start Date End Date Shelli Maciel PA [address] [place] [id number] PCP - General Physician Waist Cutter 11/08/24
[2025-01-08 12:02] LABS: Alanine Aminotransferase 75 U/L (0-31); Aspartate Amino Transferase 69 U/L (5-31)
[2025-01-09 04:53] LABS: Hepatitis A Antibody IgM 0.19 Index (0-0.79); ~Hepatitis A Antibody IgM Nonreactive (Nonreactive)
[2025-01-09 04:54] LABS: HBc Num1 0.09 S/CO (0.00-0.79); Hepatitis A Antibody IgM 0.16 Index (0-0.79); Hepatitis B Core Antibody Nonreactive (Nonreactive); Hepatitis B Surface Antigen Negative (Negative); ~HepC Num1 0.21 S/CO (0.00-0.79); ~Hepatitis A Antibody IgM Nonreactive (Nonreactive); ~Hepatitis B Surface Antibody NONREACTIVE (Nonreactive); ~Hepatitis C Antibody Nonreactive (Nonreactive)
== END 2025-01-08 09:45 | disposition home or self-care (01) ==
LOC: HO.WFDLDS 09:44
PROVIDERS: Visit Provider Physician Assistant Medical
DX: R79.89 Other specified abnormal findings of blood chemistry (principal); R74.8 Abnormal levels of other serum enzymes
CPT/HCPCS: 36415; 84450; 84460; 86704; 86706; 86709; 86803; 87340

== ENCOUNTER 2025-02-15 09:57 | Outpatient (AMB) | payer OTHER, SELFPAY ==
--- NOTE | 2025-02-15 10:03 | A.OFFPC_ITS ---
Vital Signs 02/15/25 10:07 Height 5 ft 4 in Weight 142 lb BMI 24.4 BP 100/66 Blood Pressure Location Rt brachial Position Sitting Pulse 93 Pulse Source Pulse Oximeter Temp 98.4 F Temp Source Temporal Artery Scan Pulse Oximetry (%) 98 Oxygen Delivery Method Room Air Intake Visit Reasons: med check Intake Note: [place] presents in the office today for a medication check. Allergies aspirin Allergy (Severe, Verified 02/15/25 10:04) Stomach Upset Bees - has epipen Allergy (Unknown, Uncoded 10/16/24 09:05) Rash Codeine Phosphate Allergy (Unknown, Uncoded 10/16/24 09:05) Rash Hives Codeine Sulfate Allergy (Unknown, Uncoded 02/15/25 10:04) Hives Wellbutrin Allergy (Unknown, Uncoded 02/15/25 10:04) stomach upset Tobacco use date assessed: 02/15/25 Dental Screening Dental Screen Date: 02/15/25 Did you have a dental visit in the last 12 months?: No Did you have a dental problem in the last 6 months where you did not have access to dental care?: No Was dental information given to patient?: Yes HPI HPI Comments History of Present Illness Details This is a 49 year old female with a pmhx of tobacco use disorder, alcohol use disorder and GERD presenting for follow up. She was seen at a week ago after cutting her left hand with a knife and getting and infection. The patient says it was lanced and a small amount of puss drained. She was supposed to take doxy x 7 days, but she took 1 dose, symptoms resolved, and she stopped it. Denies fevers or chills. She has warts on her hands that she picks at frequently. No fevers or chills. Very mild pain at the site she cut her hand which is right by the warts. GERD-taking Nexium 20 mg daily. She is a smoker and drinks coffee. Smokes 1 ppd x 37 years. Patient reports she had her EGD and colonoscopy at [facility] in November. Patient reports they were normal. Proposal Manager told her she can increase Nexium to 40 mg daily if needed. Patient had a liver ultrasound on 11/08/2024 which demonstrated hepatic steatosis and elastography measurements ruled out compensated advanced chronic liver disease. Elevated LFTs-improved on labs from January. She continues with alcohol abuse. Tobacco use- She tried Chantix, but it caused tremors. She has an irritant reaction to patches. She is allergic to Wellbutrin. Patient is using Ventolin and started Spirva for COPD. Since starting Spiriva as long as she takes it she doesn't require albuterol at all. LDCT January 2025 showed multiple lung nodules seen that are considered low likelihood of becoming clinically active cancer due to their size and lack of growth. It is recommended to repeat the low-dose CAT scan in 1 year to re- evaluate them. She has an appointment to get the pneumonia vaccine. Alcoholism- She is drinking 5 or 6 beers per day now down from 8 or 9 previously. Patient is seeing a therapist. She was referred to Psychiatry, and they out reached with the patient 3 times, but she did not respond. I referred again, and the appointment was scheduled, but she says she canceled because she doesn't want to see a psychiatrist. She previously requested clonazepam for sleep. She has racing thoughts when she tries to fall asleep. She has tried melatonin and [id number] sleep aids. She has underlying depression and anxiety. Denies SI/HI. She is taking Celexa and notes less irritability since starting it. Mammogram completed 06/16/2024. Routine mammo in 1 year recommended. She has an appointment 03/01/25 with podiatry for her chronic feet pain. ROS: Constitutional: No unexplained weight loss, fever, chills or night sweats. Respiratory: No shortness of breath,, hemoptysis or sputum production. Cardiovascular: No chest pain Neurologic: No headache, dizziness, syncope, unilateral weakness, ataxia, numbness or tingling in the extremities. Hematologic/Lymphatics: No bleeding or bruising. Gastrointestinal: No vomiting, diarrhea, blood in stools or abdominal pain. Skin: No rash Endocrine: No cold or heat intolerance. No polyuria or polydipsia. Psychiatric: No SI/HI. Physical exam: Constitutional: Alert, in no distress. Neck: Supple, Full range of motion. No lymphadenopathy. No palpable thyroid masses. Respiratory: Clear to auscultation. Cardiovascular: S1 S2 regular. No murmurs. Psychiatric: Cooperative. Skin: 3 warts on the palm of the left hand and one on the right index finger. Th ere are two small red abrasions near the warts on the left palm and very mild erythema limited to a ~1 cm halo around each. No fluctuance or discharge. Nontender. [facility] Medical History (Updated 02/15/25 @ 21:23 by YARI Mei) Hand abrasion, infected Warts Wart of hand Hepatic steatosis Elevated liver enzymes Screen for colon cancer Heel pain, bilateral Tobacco use Screening for cardiovascular condition Depression Alcohol use disorder Routine physical examination Acid reflux COPD (chronic obstructive pulmonary disease) Surgical History (Updated 06/01/24 @ 13:55 by Brittany Flannery MA) H/O wrist surgery History of ankle surgery H/O knee surgery Family History Mother Asthma High blood pressure Father Asthma High cholesterol Alcohol abuse Substance abuse FH: mental illness Maternal Grandfather Asthma High blood pressure High cholesterol Diabetes Paternal Grandfather High blood pressure High cholesterol Diabetes Paternal Uncle FH: mental illness Social History (Updated 02/15/25 @ 10:06 by Sailaja Fenton MA) Housing: Apartment Alcohol intake: current Patient Tobacco Use Status: Current everyday Tobacco user Tobacco use type: Cigarette Cigarettes Per Day: 15 Years Smoked: 36 e-Cigarette/Vaping Use: Never Used Second Hand Smoke Exposure: Yes service: No Current occupational status: unemployed Cognitive needs: No Hearing needs: No Vision needs: Yes (wear glasses) Questionnaire Thrive Questionnaire Date Thrive assessed: 02/15/25 I am a: Patient What is your living situation today?: I have a steady place to live Within the past 12 months, did the food you bought not last and you didn't have the money to get more?: Never true Within the past 12 months, did you worry whether your food would run out before you got money to buy more?: Never true Do you have trouble paying for medicines?: No Do you have trouble getting transportation to medical appointments?: Yes Do you have trouble paying your heating and electricity bill?: Yes Do you have trouble taking care of your child, family member or friend?: I choose not to answer this question Do you have trouble with day-to-day activities such as bathing, preparing meals, shopping, managing finances, etc.?: No Are you currently unemployed and looking for a job?: No Are you interested in more education?: No Please select the resources that you would like help with: Transportation Currently or been in a relationship where the following occur: I choose not to answer THRIVE Score: 2 AUDIT C Alcohol Use Questionnaire (AUDIT-C) 1. How often do you have a drink containing alcohol?: 2-4 times a month 2. How many drinks containing alcohol do you have on a typical day when you are drinking?: 1 or 2 3. How often do you have six or more drinks on one occasion?: Never Total Score: 2 Score Reviewed/Action Taken: No VISHAL-7 AMB Questionnaire VISHAL-7 Date VISHAL - 7 assessed: 02/15/25 Feeling nervous, anxious, or on edge: 0 = Not at all Not being able to stop or control worryin = Not at all Worrying too much about different things: 0 = Not at all Trouble relaxin = Not at all Being so restless that it is hard to sit still: 0 = Not at all Becoming easily annoyed or irritable: 0 = Not at all Feeling afraid as if something awful might happen: 0 = Not at all Total VISHAL-7 score (0-4 normal; 5-9 mild; 10-14 moderate; 15-21 severe): 0 Source: Developed by Drs. Yordan Ruiz, Malinda Ross, Osman Haywood and colleagues, with an educational adilia from [employer]. VISHAL-7 Assessment Billing VISHAL-7 Assessment Tool: VISHAL-7 Assessment 39277 Physical exam (Primary Care) Vital Signs: Last Vital Signs Temp 98.4 F 02/15/25 10:07 Pulse 93 02/15/25 10:07 BP 100/66 02/15/25 10:07 Pulse Ox 98 02/15/25 10:07 Oxygen Delivery Method Room Air 02/15/25 10:07 BMI result Body Mass Index 24.4 Tobacco/Smoking Status: Tobacco use Status Tobacco use date assessed 02/15/25 02/15/25 10:09 Patient Tobacco Use Status Current everyday Tobacco 02/15/25 10:09 Tobacco use type Cigarette 02/15/25 10:09 e-Cigarette/Vaping Use Never Used 02/15/25 10:09 Thrive Assessment: Date of Thrive Assessment Date Thrive assessed 02/15/25 02/15/25 10:09 Currently or been in a relationship where the following occur: I choose not to answer Coding Level of Care Code Est Pt Level 4 (25693) Complex EM visit Add On G2211 Diagnoses Chronic GERD K21.9 Tobacco use Z72.0 Alcohol use disorder F10.90 Current moderate episode of major depressive disorder without prior episode F32.1 Active/Remission status: currently active Depression Type: major depressive disorder Major depression episode severity: moderate Major depression recurrence: single episode Heel pain, bilateral M79.671; M79.672 Warts B07.9 Hand abrasion, infected S60.519A; L08.9 Additional Codes VISHAL-7 Assessment Billing - VISHAL-7 Assessment Tool: VISHAL-7 Assessment 32486 ([id number]) Assessment & Plan Assessment & Plan (1) Chronic GERD: Code(s): K21.9 - Gastro-esophageal reflux disease without esophagitis Category: Medical Plan: We again discussed alcohol consumption and smoking and how this relates to GERD. Recommended avoidance of spicy and acidic foods. Continue Nexium. Patient saw Gastroenterology at [facility]. (2) Tobacco use: Code(s): Z72.0 - Tobacco use Category: Social Hx Plan: Patient is not interested in cessation at this time. LDCT to be repeated in January 2026. Referred to pulmonology for COPD and smoking. Continue Spiriva 2 puffs daily. Continue Ventolin 2 puffs every 4 hours as needed for coughing, wheezing and shortness of breath. (3) Alcohol use disorder: Code(s): F10.90 - Alcohol use, unspecified, uncomplicated Category: Medical Plan: We reviewed the risks of alcohol abuse in detail. She is not ready to stop drinking and declines referral to addiction Medicine. She is seeing a therapist now. (4) Depression: Code(s): F32.A - Depression, unspecified Category: Medical Qualifiers: Active/Remission status: currently active Depression Type: major de pressive disorder Major depression episode severity: moderate Major depression recurrence: single episode Qualified Code(s): F32.1 - Major depressive disorder, single episode, moderate Plan: Increase Celexa to 20 mg daily. Discussed black box warning, administration and side effects. She will contact the office if she has any difficulty with this. Trial of Hydroxyzine 25-50 mg nightly for anxiety/sleep. The patient is cautioned that the medication can cause sedation and drowsiness. They should not drive or operate heavy machinery when taking it. T (5) Heel pain, bilateral: Code(s): M79.671 - Pain in right foot; M79.672 - Pain in left foot Category: Medical Plan: She has a podiatry appointment in February. (6) Warts: Code(s): B07.9 - Viral wart, unspecified Category: Medical Plan: She can use OTC wart remover. Avoid picking. Refer to dermatology. (7) Hand abrasion, infected: Code(s): S60.519A - Abrasion of unspecified hand, initial encounter; L08.9 - Local infection of the skin and subcutaneous tissue, unspecified Category: Medical Plan: No evidence of abscess on exam. Cellulitis resolving. Agreed to restart and finish the entire course of doxy and follow up if symptoms do not resolve. Plan Follow up in 6 weeks. Orders: Referrals Dermatology Referral B07.9 - Viral wart, unspecified Medications: New citalopram (Celexa) 20 mg PO DAILY 90 tabs 1RF hydroxyzine HCl 25 - 50 mg (1 - 2 x 25 mg) PO BEDTIME PRN 60 tabs 3RF sleep Refilled tiotropium bromide 2.5 mcg/actuation (Spiriva Respimat) 2 puffs inhalation BEDTIME 4 grams 11RF Discontinued citalopram Discontinued Reason: Doctor's Order 10 mg PO DAILY 60 tabs 0RF
[2025-02-15 10:07] VITALS: BP 100/66; PULSE 93; TEMP 36.9; O2SAT 98; BMI 24.4
--- OUTSIDE RECORDS SUMMARY | 2025-02-15 10:53 | XMS_ITS | Clinical Summary ---
Author Organization [address] [place] [address] Address [address] [place] [address] Phone Care Team Providers Care Gang Ripsaw Operator Name Role Phone Shelli Maciel Primary Care Provider [phone] Allergies Active Allergy Reactions Criticality Noted Date [...] Upcoming Encounters Date Type Department Care Team ([facility] Contact Info) Description 03/01/2025 10:45 AM EDT Consult Orthopedic Surgery - [place] [address] [id number] Freddie Forman DPM [address] [address] Health Maintenance Due Date Last Done Comments [...] age to complete this topic Meningococcal B Vaccine Aged Out No l onger eligible based on patient's age to complete [...] patient's age to complete this topic [place] [address] [place] [address] [employer]AN Care Teams Gang Ripsaw Operator Relationship Specialty Start Date End Date Shelli Maciel PA [address] [place] [id number] PCP - General Physician Metal Cabinet Finisher 11/08/24
== END 2025-02-15 10:40 | disposition home or self-care (01) ==
LOC: HO.HMCFM 09:58
PROVIDERS: PCP Physician Assistant Medical; Visit Provider Physician Assistant Medical
DX: K21.9 Gastro-esophageal reflux disease without esophagitis (principal); F32.1 Major depressive disorder, single episode, moderate; B07.9 Viral wart, unspecified; Z72.0 Tobacco use; F10.90 Alcohol use, unspecified, uncomplicated; M79.671 Pain in right foot; M79.672 Pain in left foot; S60.512A Abrasion of left hand, initial encounter; L08.9 Local infection of the skin and subcutaneous tissue, unspecified

== ENCOUNTER → 2025-02-15 09:57 | Outpatient (BNVA) | payer OTHER, SELFPAY | PROVIDERS: PCP Physician Assistant Medical; Visit Provider Physician Assistant Medical | DX: K21.9 Gastro-esophageal reflux disease without esophagitis (principal); F10.90 Alcohol use, unspecified, uncomplicated; F32.1 Major depressive disorder, single episode, moderate; M79.671 Pain in right foot; M79.672 Pain in left foot; B07.9 Viral wart, unspecified; S60.512D Abrasion of left hand, subsequent encounter; L08.9 Local infection of the skin and subcutaneous tissue, unspecified; W26.0XXD Contact with knife, subsequent encounter; Z79.899 Other long term (current) drug therapy; Z72.0 Tobacco use | CPT/HCPCS: 96127; 99212 ==

== ENCOUNTER → 2025-06-06 13:17 | Outpatient (BNVA) | payer OTHER, SELFPAY | PROVIDERS: PCP Physician Assistant Medical; Visit Provider Physician Assistant | DX: S63.502A Unspecified sprain of left wrist, initial encounter (principal); X50.3XXA Overexertion from repetitive movements, initial encounter | CPT/HCPCS: 73110; 99204 ==

== ENCOUNTER → 2025-06-08 11:48 | Outpatient (BNVA) | payer OTHER, SELFPAY | PROVIDERS: PCP Physician Assistant Medical; Visit Provider Physician Assistant | DX: S63.502A Unspecified sprain of left wrist, initial encounter (principal); X50.3XXA Overexertion from repetitive movements, initial encounter | CPT/HCPCS: 99214 ==

== ENCOUNTER 2025-06-13 07:43 | Outpatient (RCR) | payer OTHER, BC, SELFPAY ==
--- NOTE | 2025-06-13 10:40 | MHC.OT.EP ---
[facility] Office [address] [facility] [phone] F: [phone] F: [phone] Occupational Therapy Plan of Care Patient Name: [place] Chau Date of Evaluation: 06/13/25 Diagnosis: L wrist pain Pain Location: L wrist volar/ dorsal Pain Score: 6 Pain Scale Used: Numeric (0 - 10) Aggravating Factors: movement Alleviating Factors: ice Assessment: Pt is a R hand dominant female who injured her L wrist when lifting a table at work. She felt her wrist turn into pronation and radial deviation ; and then reports extreme pain post injury. She went to work connections and had an X-ray which was negative for fractures. Pt arrived today in a wrist cock up (given to her by work connections), she has limited ROM due to pain, and decreased strength. She would benefit from skilled OT therapy to address these deficits and return her to her PLOF. DASH 75%, (-) TINELS AT GUYONS CANAL, CT, ELBOW BUT WILL REASSESS DUE TO REPORTS OFNUMBNESS/ TINGLING Frequency and Duration: The patient will be seen 2 xs a week for 4 weeks Short Term Goals: Pt will have 40 of pain free wrist extension (L) Pt will have 50 of pain free wrist flexion (L) Pt will be compliant w/ HEP Prop Attendant Goals: Pt will report 1/10 pain w/ activity Pt will have 4+ L MMT therapeutic sales specialist Pt will report RPLOF Treatment Plan: Therapeutic Exercise Therapeutic Activity Home Exercise Program Splinting Neuro Re-ed Patient Education Desensitization/Sensory Re-ed Edema Control ADL Training Ultrasound NMES Iontophoresis Paraffin Fluidotherapy MHP Cold Packs Joint Mobilization Soft Tissue Mobilization Kinesiotaping Electronically Signed By: Pita Holland OTR/L Please Sign and return to therapist. Thank you once again for your referral.
--- NOTE | 2025-06-29 08:49 | MHC.OT.DC ---
[facility] Office [address] [facility] [phone] F: [phone] F: [phone] Occupational Therapy Discharge Note Patient Name: [place] Chau Provider: Marti Posey Diagnosis: L wrist pain Date of Surgery: Date of Evaluation: 06/13/25 Date of Discharge: Treatments to Date: 1 Cancellations to Date: No Shows to Date: Discharge Status: Visit Non-compliance Discharge Summary: Pt has missed 3 consecutive appointments Electronically Signed By: Pita Holland OTR/L Reviewed/agree with student documentation: Therapist: Please Sign and return to therapist, thank you for your referral.
== END 2025-06-29 08:50 | disposition home or self-care (01) ==
LOC: HO.OT 07:43
PROVIDERS: PCP Physician Assistant Medical; Visit Provider Physician Assistant
DX: S69.92XD Unspecified injury of left wrist, hand and finger(s), subsequent encounter (principal)
CPT/HCPCS: 97110; 97140; 97166; 97535

== ENCOUNTER → 2025-09-07 14:16 | Outpatient (BNVA) | payer OTHER, SELFPAY | PROVIDERS: PCP Physician Assistant Medical; Visit Provider Physician Assistant | DX: S63.502D Unspecified sprain of left wrist, subsequent encounter (principal); X50.3XXD Overexertion from repetitive movements, subsequent encounter; Z02.79 Encounter for issue of other medical certificate | CPT/HCPCS: 99213 ==